=== PATIENT | male | born 1945 | race Caucasian/White ===

== ENCOUNTER → 2019-05-14 | Outpatient (CLI) | payer MEDICARE ==
--- NOTE | 2019-05-14 16:23 | Diagnostic Imaging Report ---
Chest, PA and lateral. History: Acute bronchitis, cough. Comparison: None available. Discussion: The cardiomediastinal silhouette and pulmonary vasculature are within normal limits. The lungs are clear without evidence of consolidation or effusion. A calcified granuloma is noted in the left midlung. There are no acute osseous abnormalities. IMPRESSION: No radiographic evidence of acute cardiopulmonary abnormality. Signed by: Ramón Alfred MD on 05/14/2019 4:20 PM
== END ==
LOC: RAD 15:12
PROVIDERS: ATTEND General Practice
DX: R05 Cough (principal); J20.9 Acute bronchitis, unspecified
CPT/HCPCS: 71046